=== PATIENT | male | born 1965 | race Two or more races ===

== ENCOUNTER 2025-02-14 21:13 | Emergency (ER) | payer MEDICAID, SELFPAY ==
[2025-02-14 21:13] VITALS: BMI 40.6
[2025-02-14 21:51] VITALS: BP 209/98; PULSE 74; RESP 20; TEMP 37.1; O2SAT 95
--- NOTE | 2025-02-14 21:54 | XR_ITS ---
Examination: PA lateral chest 2 views Technique: Upright PA lateral chest 2 views Exam date and time: February 14, 2025 1001 hrs. Indications: Elevated blood pressure today. Findings: Minor scarring in the lingular segment Mild enlargement cardiac contour No pulmonary edema or pneumonia The osseous structures are intact Impression: Mild enlargement cardiac contour No pneumonia or pulmonary edema
--- NOTE | 2025-02-14 21:54 | EKG_ITS ---
[facility] Test Date: 2025-02-14 Pat Name: NALDO MCKEON Department: Room: - Gender: Male Global Category Manager: : 1965 Requested By: Wilbert Garcia Order Number: [id number] Reading MD: Wilbert Garcia Measurements Intervals [place] Rate: 75 P: 20 [place]: 149 QRS: 10 QRSD: 117 T: 99 QT: 402 QTc: 450 Interpretive Statements SINUS RHYTHM MODERATE INTRAVENTRICULAR CONDUCTION DELAY [110+ ms QRS DURATION] ST DEVIATION AND MODERATE T-WAVE ABNORMALITY, CONSIDER LATERAL ISCHEMIA [-0.1+ mV T-WAVE IN I/aVL/V5/V6] Compared to ECG 04/05/2020 10:21:21 Intraventricular conduction delay now present Possible ischemia now present T-wave abnormality still present /store/S0/[id number]/ecg/[id number].pdf
--- NOTE | 2025-02-14 21:54 | PD.EDRME ---
Rapid Medical Screening Exam RME Arrival date/time: 02/14/25 21:13 59 yo m present to ED for c/o of dizziness, elevate bp I have greeted and performed a focused initial assessment of this patient. A comprehensive ED assessment and evaluation of the patient, analysis of all test results, and completion of the medical decision making process will be conducted by additional ED providers. Chief Complaint: General Adult/Misc Complain Time Seen by Provider: 02/14/25 21:48 Vital signs: Vital Signs Temperature 98.7 F 02/14/25 21:51 Pulse Rate 74 02/14/25 21:51 Respiratory Rate 20 02/14/25 21:51 Blood Pressure 209/98 H 02/14/25 21:51 Pulse Oximetry (%) 95 02/14/25 21:51 Oxygen Delivery Method Room Air 02/14/25 21:51
[2025-02-14 22:38] LABS: Basophils # (Auto) 0.1 Thou/mm3 (0.0-0.2); Basophils % (Auto) 1 % (0-2.5); Eosinophils # (Auto) 0.6 Thou/mm3 (0.0-0.5); Eosinophils % (Auto) 5 % (0-10); Hematocrit 40.8 % (41.0-53.0); Hemoglobin 14.7 g/dL (13.5-16.0); Immature Granulocytes % (Auto) 1 % (0-0); Immature Granulocytes Auto 0.09 Thou/mm3 (0.00-0.00); Lymphocytes # (Auto) 3.4 Thou/mm3 (1.0-4.8); Lymphocytes % (Auto) 27 % (10-50); Mean Corpuscular Hemoglobin 32.1 pg (25.0-35.0); Mean Corpuscular Volume 89 fL (80-100); Monocytes # (Auto) 0.8 Thou/mm3 (0.0-0.8); Monocytes % (Auto) 6 % (0-12); Neutrophils # (Auto) 7.5 Thou/mm3 (1.8-7.7); Neutrophils % (Auto) 60 % (37-80); Nucleated Red Blood Cell % 0 /100 WBC (0); Platelet Count 265 Thou/mm3 (140-440); RDW Standard Deviation 42.2 fL (35.1-43.9); Red Blood Count 4.58 Miln/mm3 (4.50-5.90); White Blood Count 12.4 Thou/mm3 (3.8-10.6)
[2025-02-14 23:07] LABS: B-Type Natriuretic Peptide 74 pg/mL (0-100)
[2025-02-14 23:12] LABS: Alanine Aminotransferase 76 U/L (10-49); Albumin, Serum 4.2 gm/dL (3.5-5.0); Albumin/Globulin Ratio 1.2 (1.2-2.2); Alkaline Phosphatase 80 U/L (46-116); Anion Gap 8 (7-16); Aspartate Amino Transferase 83 U/L (0-34); BUN/Creatinine Ratio 10 Ratio (12-20); Bilirubin,Total 0.6 mg/dL (0.3-1.2); Blood Urea Nitrogen 16 mg/dL (9-23); Calcium 9.1 mg/dL (8.3-10.6); Calcium (Corrected) 9.1 mg/dL (8.5-10.1); Carbon Dioxide 26.7 mMol/L (20.0-31.0); Chloride 104 mMol/L (98-107); Creatinine (Component) 1.6 mg/dL (0.6-1.3); Estimated Creatinine Clearance 64.9 mL/min (>60); Globulin 3.5 gm/dL (2.3-3.5); Glucose 84 mg/dL (74-106); Lipase 51 U/L (12-53); Osmolality,Calculated 277 (275-295); Potassium 3.7 mMol/L (3.4-5.1); Sodium 139 mMol/L (136-145); Total Protein 7.7 gm/dL (5.7-8.2); eGFR 49 See Note
[2025-02-14 23:15] LABS: Troponin I 0.168 ng/mL (0.0-0.045)
[2025-02-14 23:23] VITALS: BP 176/68; PULSE 67
[2025-02-14] MEDS: Aspirin 325 MG TABLET PO (23:31)
[2025-02-15] VITALS (7 sets, daily range): BP systolic 159–215; BP diastolic 82–108; PULSE 59–70; RESP 13–20; TEMP 36.8; O2SAT 95–98
--- NOTE | 2025-02-15 01:25 | PC.NURSE ---
PT ALERT AND ORIENTED, STATES HE WENT TO DONATE PLASMA TODAY BUT THEY WOULDN'T ALLOW HIM BECAUSE HIS BLOOD PRESSURE WAS TO HIGH, PT HAS NO COMPLAINTS ONLY CAME TO ER TO GET BLOOD PRESSURE CHECKED. PT ALSO STATES THAT HE HAS BEEN NON COMPLIANT WITH HTN MEDS. PT WAITING RE-EVALUATION FROM MD, WILL CONTINUE WITH PLAN OF CARE
--- NOTE | 2025-02-15 03:47 | PD.EDADULT ---
ED General RME/HPI General Chief complaint: General Adult/Misc Complain Stated complaint: HIGH BP 217/110 Time Seen by Provider: 02/14/25 21:48 Arrival date/time: 02/14/25 21:13 Limitations: no limitations RME / HPI RME / HPI narrative: Dr. Lentz's Main ED Evaluation: 59yo male with a history of HTN presents to the ED for a chief complaint of elevated blood pressure. Patient states she went to go donate plasma today, but was unable to due to his blood pressure being high. He states he continued to check his blood pressure for the rest of the day and it did not come down, so his daughter convinced him to come in for evaluation. He states he has not been taking his antihypertensives for 6 months (due to having his PCP appointments cancelled) and does not remember what medications he was on. He denies any headache, dizziness, chest pain, shortness of breath or any other associated symptoms. Denies being on blood thinners. PCP: [facility] Related Data Previous Rx's ?Medication ?Instructions ?Recorded ibuprofen 600 mg tablet 1 tab PO Q8HR PRN pain #30 tabs 12/12/16 cephalexin 500 mg capsule 500 mg PO Q8H #20 caps 04/05/24 lisinopril 10 mg tablet 10 mg PO QDAY #30 tabs 02/15/25 Allergies Allergy/AdvReac Type Severity Reaction Status Date / Time No Known Allergies Allergy Verified 04/05/20 10:05 Review of Systems Review of Systems Systems Reviewed: All systems reviewed, normal except as documented Past Medical History Past Medical History NEUROLOGIC: Negative Neurological Disorders CARDIAC: Positive Hypertension; Negative Cardiac Disorders or Congestive Heart Failure RESPIRATORY: Negative Chronic Obstructive Pulmonary Disease (COPD) or Asthma GASTROINTESTINAL: Positive Gastrointestinal Disorders and Obesity GENITOURINARY: Negative Genitourinary Disorders or Renal Disease MUSCULOSKELETAL: Negative Musculoskeletal Disorders ENDOCRINE: Negative Endocrine Disorders, Diabetes Mellitus Type 1 or Diabetes Mellitus Type 2 HEMATOLOGIC: Negative Blood Disorders or Sickle Cell Disease Social History SMOKING STATUS: Never smoker ED Exam General Limitations: Present no limitations General appearance: Present alert, in no apparent distress and obese Head Head exam: Present atraumatic Eye Eye exam: Present normal appearance, PERRL and EOMI ENT ENT exam: Present normal exam, normal oropharynx and mucous membranes moist Neck Neck exam: Present normal inspection, full ROM and trachea midline Chest Chest inspection: Present normal inspection and symmetric chest wall rise Respiratory Respiratory exam: Present normal lung sounds bilaterally Cardiovascular Cardiovascular exam: Present regular rate, normal rhythm and normal heart sounds Abdominal Exam Abdominal exam: Present soft and normal bowel sounds Extremities Exam Extremities exam: Present normal inspection and full ROM Back Exam Back exam: Present normal inspection and full ROM Neurological Exam Neurological exam: Present alert, oriented X3 and CN II-XII intact Psychiatric Psychiatric exam: Present normal affect and normal mood Skin Skin exam: Present warm, dry, intact and normal color Course Course Course Narrative: CXR is ordered for determining the etiology of elevated blood pressure. Quality Measures none Orders Category Date Time Status EKG (ED ONLY) *Do not use* NOW Care 02/14/25 21:54 Completed EKG (ED Only) Stat Exams 02/14/25 21:54 Draft XR chest 2V Stat Exams 02/14/25 21:54 Completed BNP [B-Type Natriuretic Peptide] Stat Lab 02/14/25 22:13 Completed CBC Stat Lab 02/14/25 22:13 Completed CMP [Comprehensive Metabolic Panel] Stat Lab 02/14/25 22:13 Completed Lipase Stat Lab 02/14/25 22:13 Completed Troponin I Stat Lab 02/14/25 22:13 Completed Troponin I Stat Lab 02/15/25 03:16 Completed Aspirin Med 02/14/25 23:21 Discontinued 325 mg PO X1 ONE hydrALAZINE HCL [Apresoline] Med 02/14/25 21:54 Discontinued 10 mg PO X1 ONE hydrALAZINE HCL [Apresoline] Med 02/14/25 23:13 Discontinued 25 mg PO X1 ONE Vital Signs Vital signs: Vital Signs Temperature 98.7 F 02/14/25 21:51 Pulse Rate 74 02/14/25 21:51 Respiratory Rate 20 02/14/25 21:51 Blood Pressure 209/98 H 02/14/25 21:51 Pulse Oximetry (%) 95 02/14/25 21:51 Oxygen Delivery Method Room Air 02/14/25 21:51 [facility] Patient data External records reviewed:: [facility] previous records (Per chart review, patient has no relevant previous ED visits.) Clinical information provided by:: patient Social determinants that could affect healthcare access:: none Patient has the following chronic illnesses:: HTN How is presenting disease/condition affected by chronic disease/condition?: caused by Evaluation data The following diagnostics were reviewed and interpreted by me:: lab results and EKG tracing(s) Lab and/or radiology exams considered but not ordered:: none Interpretation Summary: WBC count is 12.4, Creatinine is 1.6 (which is chronic), Initial troponin is 0.168, BNP is normal, according to my interpretation. EKG done at 2208, NSR, rate of 75, ST-T wave changes in lead I and avL, no STEMI, similar to previous EKG done in 04/2023, according to my interpretation. [facility] Report Signed Patient: NALDO MCKEON Record#: [id number] Birthdate: 1965 Age/Sex: 59 / M Location: [facility] Attending Dr: Ordering Physician: Wilbert Campbell PA-C Date of Service: 02/14/25 Procedure(s): XR chest 2V Accession Number(s): [id number] cc: Faraz Celis MD; Wilbert Campbell PA-C; Temporary Provider,ED ~ Examination: PA lateral chest 2 views Technique: Upright PA lateral chest 2 views Exam date and time: February 14, 2025 1001 hrs. Indications: Elevated blood pressure today. Findings: Minor scarring in the lingular segment Mild enlargement cardiac contour No pulmonary edema or pneumonia The osseous structures are intact Impression: Mild enlargement cardiac contour No pneumonia or pulmonary edema Dictated By: Faraz Celis MD Signed By: <Electronically signed by Faraz Celis MD in OV> 02/14/25 8263 Medications Medications considered but not ordered:: none Medication administrations:: Medication Administration History Discontinued Medications Aspirin (Aspirin 325 Mg Tablet) 325 mg PO X1 ONE Stop: 02/14/25 23:22 Last Admin: 02/14/25 23:31 Dose: 325 mg Documented By: BEBETO Hydralazine HCl (Hydralazine Hcl 10 Mg Tablet) 10 mg PO X1 ONE Stop: 02/14/25 21:55 Last Admin: 02/14/25 23:32 Dose: Not Given Documented By: BEBETO Non-Admin Reason: Allergy Hydralazine HCl (Hydralazine Hcl 25 Mg Tablet) 25 mg PO X1 ONE Stop: 02/14/25 23:14 Last Admin: 02/14/25 23:31 Dose: Not Given Documented By: BEBETO Non-Admin Reason: Cancelled by Provider see above Consultations Consultation(s) initiated? (list below): Yes Diagnosis Differential Diagnosis ED Complaint MDM: hypertensive urgency, hypertensive emergency, medication noncompliance Most likely diagnosis given after review of the tests above:: Other DDx: acute on chronic renal failure Final Dx: see clinical impression below Admission Indicated Admission indicated?: not indicated Explain why admission is indicated or not indicated:: Admission criteria not met. Admission Request Was there a request for admission?: No Disposition Plan Disposition Plan: Discharge Discharge Attestation Discharge Attestation: The patient and all family members were given an opportunity to ask questions and understood the discharge instructions. Discharge instructions specifically effects, indications for sooner follow up or return to the emergency department, and the expected course of current diagnosis. Patient condition: Stable Medical Decision Making MDM Narrative MDM Narrative: Scribe Attestation: 02/15/25 Gila Donaldson am scribing for and in the presence of Dr. Lentz. 0424: Discussed case with Dr. Maxwell from Hospitalist service regarding admission. Discussed patients ED course, exam findings, labs, and radiology results. The Hospitalist states that since the patient is asymptomatic at this time, the patient is stable to be discharged home. 0427: Shared-decision making discussed with the patient. He feels comfortable going home at this time. Differential Diagnosis Differential Diagnosis: hypertensive urgency, hypertensive emergency, medication noncompliance Lab Data 02/14/25 22:13 02/14/25 22:13 Labs: Lab Results 02/14/25 02/15/25 Range/Units 22:13 03:16 WBC 12.4 H (3.8-10.6) Thou/mm3 RBC 4.58 (4.50-5.90) Miln/mm3 Hgb 14.7 (13.5-16.0) g/dL Hct 40.8 L (41.0-53.0) % MCV 89 (80-100) fL MCH 32.1 (25.0-35.0) pg MCHC 36.0 (31.0-37.0) g/dl RDW Std Deviation 42.2 (35.1-43.9) fL Plt Count 265 (140-440) Thou/mm3 Neut % (Auto) 60 (37-80) % Lymph % (Auto) 27 (10-50) % [place] % (Auto) 6 (0-12) % Eos % (Auto) 5 (0-10) % Baso % (Auto) 1 (0-2.5) % Neut # (Auto) 7.5 (1.8-7.7) Thou/mm3 Lymph # (Auto) 3.4 (1.0-4.8) Thou/mm3 [place] # (Auto) 0.8 (0.0-0.8) Thou/mm3 Eos # (Auto) 0.6 H (0.0-0.5) Thou/mm3 Baso # (Auto) 0.1 (0.0-0.2) Thou/mm3 Immature Gran # (Auto) 0.09 H (0.00-0.00) Thou/mm3 Absolute Nucleated RBC 0.00 (0.00-0.00) Thou/mm3 Immature Gran % 1 H (0-0) % Nucleated RBC % 0 (0) /100 WBC Sodium 139 (136-145) mMol/L Potassium 3.7 (3.4-5.1) mMol/L Chloride 104 (98-107) mMol/L Carbon Dioxide 26.7 (20.0-31.0) mMol/L Anion Gap 8 (7-16) BUN 16 (9-23) mg/dL Creatinine 1.6 H (0.6-1.3) mg/dL Estim Creat Clear Calc 64.9 (>60) mL/min eGFR 49 L (60 - ) See Note BUN/Creatinine Ratio 10 L (12-20) Ratio Glucose 84 (74-106) mg/dL Calculated Osmolality 277 (275-295) Calcium 9.1 (8.3-10.6) mg/dL Corrected Calcium 9.1 (8.5-10.1) mg/dL Total Bilirubin 0.6 (0.3-1.2) mg/dL AST 83 H (0-34) U/L ALT 76 H (10-49) U/L Alkaline Phosphatase 80 (46-116) U/L Troponin I 0.168 H* 0.165 H* (0.0-0.045) ng/mL B-Natriuretic Peptide 74 (0-100) pg/mL Total Protein 7.7 (5.7-8.2) gm/dL Albumin 4.2 (3.5-5.0) gm/dL Globulin 3.5 (2.3-3.5) gm/dL Albumin/Globulin Ratio 1.2 (1.2-2.2) Lipase 51 (12-53) U/L Discharge Plan Plan Patient Disposition: HOME (Self Care) Patient condition on transfer: Stable Prescriptions/Referrals Prescriptions/Med Rec: New lisinopril 10 mg tablet 10 mg PO QDAY Qty: 30 3RF No Action ibuprofen 600 MG tablet 1 tab PO Q8HR PRN (Reason: pain) Qty: 30 0RF cephalexin 500 mg capsule 500 mg PO Q8H Qty: 20 0RF Referrals: [facility] [Outside] - 02/18/25 No Primary/Family,Physician [Primary Care Provider] - In 1 week Problem List Clinical Impression: Noncompliance with medication regimen, Hypertension Patient/Caregiver Discharge Instructions Education Materials: Controlling High Blood Pressure, Blood Pressure Check Steps Additional Instructions: Follow-up with your primary care provider in 72 hours. Return to the ED if you have any worsening symptoms such as headache, chest pain, shortness of breath or any other concerns. Take medications as prescribed. Print Language: Frisian Stand Alone Forms: [facility] Info., Patient Portal Info Letter
[2025-02-15 04:07] LABS: Troponin I 0.165 ng/mL (0.0-0.045)
== END 2025-02-15 06:05 | disposition home or self-care (01) ==
PROVIDERS: Physician Assistant; Emergency Provider Emergency Medicine
DX: I10 Essential (primary) hypertension (principal); Z91.148 Patient's other noncompliance with medication regimen for other reason
CPT/HCPCS: 36415; 71046; 80053; 83690; 83880; 84484; 85025; 93005; 99283; A9270

== ENCOUNTER 2025-04-26 19:06 | Emergency (ER) | payer MEDICAID, SELFPAY ==
[2025-04-26 19:06] VITALS: BMI 37.8
[2025-04-26 19:24] VITALS: BP 155/82; PULSE 107; RESP 20; TEMP 36.6; O2SAT 96
--- NOTE | 2025-04-26 19:43 | EDRME_ITS ---
Rapid Medical Screening Exam [facility] Arrival date/time: 04/26/25 19:06 59M with history of HTN and drug/alcohol use presents to ED with 1 day of N/V, LUQ pain, and some non-bloody diarrhea. Patient had two shots of alcohol yesterday, but doesn't feel like he's going through withdrawal. Patient also states this doesn't feel like food poisoning. Chief Complaint: Abdominal Pain Vital signs: Vital Signs Temperature 98 F 04/26/25 19:24 Pulse Rate 107 H 04/26/25 19:24 Respiratory Rate 20 04/26/25 19:24 Blood Pressure 155/82 H 04/26/25 19:24 Pulse Oximetry (%) 96 04/26/25 19:24 Oxygen Delivery Method Room Air 04/26/25 19:24
--- NOTE | 2025-04-26 20:21 | PC.NURSE ---
KYLE 2021 CAME UP TO NURSES STATION AND SAID HE IS SEEING HES PRIMARY IN THE MORNING AND NOT WAITING ANY LONGER. THEN WALKS OUT.
[2025-04-26 20:30] LABS: Alanine Aminotransferase 69 U/L (10-49); Albumin, Serum 4.2 gm/dL (3.5-5.0); Albumin/Globulin Ratio 1.4 (1.2-2.2); Alcohol, Blood Medical < 3.0 mg/dL (0-10.0); Alkaline Phosphatase 65 U/L (46-116); Anion Gap 13 (7-16); Aspartate Amino Transferase 81 U/L (0-34); BUN/Creatinine Ratio 5 Ratio (12-20); Bilirubin,Total 1.1 mg/dL (0.3-1.2); Blood Urea Nitrogen 17 mg/dL (9-23); Calcium 9.7 mg/dL (8.3-10.6); Calcium (Corrected) 9.7 mg/dL (8.5-10.1); Carbon Dioxide 20.9 mMol/L (20.0-31.0); Chloride 101 mMol/L (98-107); Creatinine (Component) 3.4 mg/dL (0.6-1.3); Estimated Creatinine Clearance 30.3 mL/min (>60); Glucose 126 mg/dL (74-106); Lipase 37 U/L (12-53); Osmolality,Calculated 273 (275-295); Potassium 2.9 mMol/L (3.4-5.1); Sodium 135 mMol/L (136-145); Total Protein 7.2 gm/dL (5.7-8.2); eGFR 20 See Note
[2025-04-26 20:50] LABS: Basophils # (Auto) 0.1 Thou/mm3 (0.0-0.2); Basophils % (Auto) 1 % (0-2.5); Eosinophils % (Auto) 0 % (0-10); Hematocrit 47.9 % (41.0-53.0); Hemoglobin 17.1 g/dL (13.5-16.0); Immature Granulocytes % (Auto) 1 % (0-0); Immature Granulocytes Auto 0.13 Thou/mm3 (0.00-0.00); Lymphocytes # (Auto) 2.8 Thou/mm3 (1.0-4.8); Lymphocytes % (Auto) 14 % (10-50); Mean Corpuscular HGB Conc 35.7 g/dl (31.0-37.0); Mean Corpuscular Volume 93 fL (80-100); Monocytes # (Auto) 1.2 Thou/mm3 (0.0-0.8); Monocytes % (Auto) 6 % (0-12); Neutrophils # (Auto) 15.6 Thou/mm3 (1.8-7.7); Neutrophils % (Auto) 79 % (37-80); Nucleated Red Blood Cell % 0 /100 WBC (0); Platelet Count 247 Thou/mm3 (140-440); RDW Standard Deviation 46.2 fL (35.1-43.9); Red Blood Count 5.18 Miln/mm3 (4.50-5.90); White Blood Count 19.8 Thou/mm3 (3.8-10.6)
== END 2025-04-26 20:23 | disposition left against medical advice (07) ==
LOC: SERX 19:46
PROVIDERS: Physician Assistant; Emergency Provider Emergency Medicine
DX: R11.2 Nausea with vomiting, unspecified (principal); Z53.29 Procedure and treatment not carried out because of patient's decision for other reasons; I10 Essential (primary) hypertension; R10.12 Left upper quadrant pain; R19.7 Diarrhea, unspecified
CPT/HCPCS: 36415; 80053; 80307; 80320; 81001; 83690; 85025; 99281; G0480

== ENCOUNTER 2025-05-11 17:09 | Emergency (ER) | payer MEDICAID, SELFPAY ==
[2025-05-11 17:51] VITALS: BP 146/75; PULSE 109; RESP 20; TEMP 36.8; O2SAT 95
--- NOTE | 2025-05-11 17:52 | XR_ITS ---
Examination: Testicular sonography complete TECHNIQUE: [place] scale sonographic images stenoses, assessment arterial inflow and venous outflow Doppler spectrum analysis color flow analysis Date and time: May 11, 2025, 1809 hours INDICATIONS: Left testicular pain beginning 2 days ago FINDINGS: Right testis 4.4 cm epididymis 1.0 cm 12 mm right epididymal cyst Arterial flow to the testicle. No testicular mass Mild hydrocele Left testis 3.6 cm epididymis 1.9 cm 14 mm right epididymal cyst Moderate varicocele Arterial flow to the testicle. No testicular mass Mild hydrocele IMPRESSION: No testicular torsion or testicular mass. Bilateral benign epididymal cysts. Moderate left varicocele
--- NOTE | 2025-05-11 17:53 | PD.EDMALE ---
ED Male Genitalurinary RME/HPI General Chief complaint: Urogenital-Male Stated complaint: Left testicle is swollen X 2 days Time Seen by Provider: 05/11/25 17:40 Arrival date/time: 05/11/25 17:09 This is a case of 59-year-old male with history of present urinary tract infection came in in the emergency room due to testicular pain for 2 days with swelling patient denies any abdominal pain penile discharge nausea vomiting constipation diarrhea Limitations: no limitations Related Data Previous Rx's ?Medication ?Instructions ?Recorded ibuprofen 600 mg tablet 1 tab PO Q8HR PRN pain #30 tabs 12/12/16 cephalexin 500 mg capsule 500 mg PO Q8H #20 caps 04/05/24 lisinopril 10 mg tablet 10 mg PO QDAY #30 tabs 02/15/25 cefuroxime axetil 500 mg tablet 500 mg PO BID 10 days #20 tabs 05/11/25 hydrocodone 5 mg-acetaminophen 325 1 tab PO Q6H PRN pain #10 tabs 05/11/25 mg tablet Allergies Allergy/AdvReac Type Severity Reaction Status Date / Time No Known Allergies Allergy Verified 04/05/20 10:05 Review of Systems Constitutional Constitutional: Reports system reviewed and no additional complaints, except as documented, Reports as per HPI, Denies chills and Denies fever(s) Cardiovascular Cardiovascular: Reports system reviewed and no additional complaints, except as documented, Reports as per HPI, Denies chest pain and Denies dyspnea Respiratory Respiratory: Reports system reviewed and no additional complaints, except as documented, Reports as per HPI and Denies dyspnea Gastrointestinal Gastrointestinal: Reports system reviewed and no additional complaints, except as documented, Reports as per HPI, Denies abdominal pain, Denies diarrhea, Denies dyspepsia, Denies hematemesis, Denies nausea and Denies vomiting Genitourinary Genitourinary: Reports system reviewed and no additional complaints, except as documented, Reports as per HPI, Denies change in libido, Denies difficulty urinating, Denies difficulty with ejaculations, Denies dysuria, Denies erectile dysfunction, Denies flank pain, Denies genital lesions, Denies genital pain, Denies hematospermia, Denies hematuria, Denies nocturia, Denies oliguria, Denies painful ejaculations, Denies penile discharge, Denies scrotal swelling, Denies testicular mass, Reports testicular pain, Denies urinary frequency, Denies urinary hesitancy, Denies urinary incontinence and Denies urinary urgency Musculoskeletal Musculoskeletal: Reports system reviewed and no additional complaints, except as documented and Reports as per HPI Neurologic Neurologic: Reports system reviewed and no additional complaints, except as documented and Reports as per HPI Psychiatric Psychiatric: Denies change in libido Endocrine Endocrine: Denies change in libido Past Medical History Past Medical History NEUROLOGIC: Negative Neurological Disorders CARDIAC: Positive Hypertension; Negative Cardiac Disorders or Congestive Heart Failure RESPIRATORY: Negative Chronic Obstructive Pulmonary Disease (COPD) or Asthma GASTROINTESTINAL: Positive Gastrointestinal Disorders and Obesity GENITOURINARY: Negative Genitourinary Disorders or Renal Disease MUSCULOSKELETAL: Negative Musculoskeletal Disorders ENDOCRINE: Negative Endocrine Disorders, Diabetes Mellitus Type 1 or Diabetes Mellitus Type 2 HEMATOLOGIC: Negative Blood Disorders or Sickle Cell Disease Social History SMOKING STATUS: Former smoker ED Exam General Limitations: Present no limitations General appearance: Present alert, in no apparent distress and other (Patient is awake alert oriented not in distress nontoxic looking well-hydrated well-nourished) Head Head exam: Present atraumatic, normocephalic and normal inspection Eye Eye exam: Present normal appearance, PERRL and EOMI ENT ENT exam: Present normal exam, normal oropharynx and mucous membranes moist Neck Neck exam: Present normal inspection, full ROM and trachea midline; Absent tenderness or meningismus Chest Chest inspection: Present normal inspection and symmetric chest wall rise; Absent tenderness or rash Respiratory Respiratory exam: Present normal lung sounds bilaterally; Absent respiratory distress, wheezes, stridor, accessory muscle use or prolonged expiratory phase Cardiovascular Cardiovascular exam: Present regular rate, normal rhythm and normal heart sounds; Absent bradycardia, tachycardia, irregular rhythm, systolic murmur or diastolic murmur Abdominal Exam Abdominal exam: Present soft and normal bowel sounds; Absent distention, tenderness, guarding, rebound, rigidity, diminished bowel sounds, hyperactive bowel sounds or hypoactive bowel sounds exam: Present testicular tenderness, scrotal swelling, circumcised and other (Noted mild to moderate tenderness on the left testicle with swelling no penile ulceration rash or any lesion no penile discharge scrotum normal exam no inguinal hernia chaperoned by RN); Absent urethral discharge or normal testicular lie Extremities Exam Extremities exam: Present normal inspection and full ROM Back Exam Back exam: Present normal inspection and full ROM Neurological Exam Neurological exam: Present alert, oriented X3, CN II-XII intact, normal gait and reflexes normal; Absent motor sensory deficit Psychiatric Psychiatric exam: Present normal affect and normal mood Skin Skin exam: Present warm, dry, intact and normal color Course Quality Measures none Orders Category Date Time Status US testicular Stat Exams 05/11/25 17:52 Completed Blood Culture (Lab) Stat Lab 05/11/25 19:15 Received CBC Stat Lab 05/11/25 18:00 Completed CMP [Comprehensive Metabolic Panel] Stat Lab 05/11/25 18:00 Completed Lactic Acid [Lactate (Lactic Acid)] Stat Lab 05/11/25 19:15 Completed Procalcitonin Stat Lab 05/11/25 19:15 Completed Urinalysis Stat Lab 05/11/25 18:52 Completed Urine Culture Stat Lab 05/11/25 18:52 Received Sodium Chloride 0.9% 1000 ml [Ns] 1,000 ml Med 05/11/25 18:46 Discontinued IV 999 mls/hr Sodium Chloride 0.9% 1000 ml [Ns] 1,000 ml Med 05/11/25 19:37 Discontinued IV 999 mls/hr cefTRIAXone [Rocephin] 2 gm Med 05/11/25 18:47 Discontinued SODIUM CHLORIDE 0.9% ([place]) [Ns 0.9% (P)] 50 ml IV X1 Vital Signs Vital signs: Vital Signs Temperature 98.3 F 05/11/25 17:51 Pulse Rate 109 H 05/11/25 17:51 Respiratory Rate 20 05/11/25 17:51 Blood Pressure 146/75 H 05/11/25 17:51 Pulse Oximetry (%) 95 05/11/25 17:51 Oxygen Delivery Method Room Air 05/11/25 17:51 Patient is afebrile mild tachycardic 109 not tachypneic BP stable not hypoxic oxygen saturation is 95% in room air Urogenital - Male MDM Narrative MDM Narrative:: This is a case of 59-year-old male with history of present urinary tract infection came in in the emergency room due to testicular pain for 2 days with swelling patient denies any abdominal pain penile discharge nausea vomiting constipation diarrhea physical examination patient is awake alert oriented not in distress not toxic looking well-hydrated well-nourished lungs sound is clear no crackles no rales no retraction no stridor abdominal exam is benign nonsurgical no guarding no rebound no rigidity no tenderness negative psoas negative straight or negative Rovsing's negative Lynn's negative CVA tenderness patient noted to have a tenderness on the left testicle with mild swelling of the left scrotum no penile discharge no erosions no lesion noted the rest of the physical examination neurological exam is normal and on room blood test showed leukocytosis at 19.3 lactic acid is normal procalcitonin is negative thus patient is not having sepsis patient have hyponatremia at 132 thus a bolus of normal saline was given patient potassium is normal patient creatinine is 1.5 the rest of the BUN and kidney exam is normal liver function is normal patient urinalysis showed positive nitrite and positive WC BC suggestive of urinary tract infection ultrasound of the testicle showed left varicocele and epididymal cyst no testicular torsion at this point patient was given a bolus of normal saline and ceftriaxone 2 g for urinary tract infection patient condition markedly improved pain on the testicle improved even though there is no pain medication patient is well informed to follow-up with the urologist for further evaluation of testicular pain varicocele and epididymal cyst patient will also return here in the emergency room tomorrow for leukocytosis and to repeat CBC for any worsening symptoms he is informed to return in the emergency room immediately or call 911 he was also prescribed with cefuroxime for UTI and [place] for pain patient agreed with the treatment plan and discharge Patient was discharged with comfortable condition walking with stable gait. Patient verbalized no further complains explained diagnosis and answered patient question. Patient is comfortable with the proposed management plan including the need to follow up with his/her primary care physician and any specialist if applicable Discussed patient for any urgent condition or worsening sx, He/She needed to go to emergency room immediately or call 911. Patient acknowledge the responsibility to follow up as instructed and to monitor her/his symptoms. For any persistence of the symptoms for more than 3-5 days return precaution advised. Discussed the result of the test and was given printed discharge instruction Patient data External records reviewed:: [facility] previous records Clinical information provided by:: patient Social determinants that could affect healthcare access:: none Patient has the following chronic illnesses:: None How is presenting disease/condition affected by chronic disease/condition?: no chronic disease Evaluation data The following diagnostics were reviewed and interpreted by me:: lab results and radiology exam(s) Lab and/or radiology exams considered but not ordered:: Reviewed Interpretation Summary: Reviewed Medications / Prescriptions Medications or Prescriptions considered but not ordered:: Given Medication administrations:: Medication Administration History Discontinued Medications Sodium Chloride (Ns) 1,000 mls @ 999 mls/hr IV .Q1H1M ONE Stop: 05/11/25 19:46 Last Infusion: 05/11/25 20:40 Dose: Infused Documented By: Admin: 05/11/25 19:29 Dose: 999 mls/hr Documented By: SIRIA Ceftriaxone Sodium 2 gm/ (Sodium Chloride) 50 mls @ 100 mls/hr IV X1 ONE Stop: 05/11/25 19:16 Last Infusion: 05/11/25 19:58 Dose: Infused Documented By: Admin: 05/11/25 19:28 Dose: 100 mls/hr Documented By: SIRIA Sodium Chloride (Ns) 1,000 mls @ 999 mls/hr IV .Q1H1M ONE Stop: 05/11/25 20:37 Last Admin: 05/11/25 20:53 Dose: Not Given Documented By: JELLY Non-Admin Reason: Duplicate Medication on eMAR Given Consultations Consultation(s) initiated? (list below): No Diagnosis Urogenital Male Differential Diagnosis: urinary tract infection, epididymitis, prostatitis and other (Testicular torsion) Most likely diagnosis given after review of the tests above:: Urinary tract infection varicocele epididymal cyst Admission Indicated Admission indicated?: not indicated Explain why admission is indicated or not indicated:: Not indicated Admission Request Was there a request for admission?: No Admission Attestation Admission request attestation: Not indicated Disposition Plan Disposition Plan: Discharge Discharge Attestation Discharge Attestation: The patient and all family members were given an opportunity to ask questions and understood the discharge instructions. Discharge instructions specifically effects, indications for sooner follow up or return to the emergency department, and the expected course of current diagnosis. Patient condition: Stable Discharge Plan Plan Patient Disposition: HOME (Self Care) Prescriptions/Referrals Prescriptions/Med Rec: New cefuroxime axetil 500 mg tablet 500 mg PO BID 10 Days Qty: 20 0RF hydrocodone-acetaminophen 5-325 mg tablet 1 tab PO Q6H MDD max 4 tabs for 4 days PRN (Reason: pain) Qty: 10 0RF No Action ibuprofen 600 MG tablet 1 tab PO Q8HR PRN (Reason: pain) Qty: 30 0RF cephalexin 500 mg capsule 500 mg PO Q8H Qty: 20 0RF lisinopril 10 mg tablet 10 mg PO QDAY Qty: 30 3RF Referrals: Rustam Morales MD [Physician] - 05/12/25 (For further evaluation and treatment of left testicular pain varicocele and epididymal cyst) Pedro Truong MD [Primary Care Provider] - In 1 week Problem List Clinical Impression: Left testicular pain, Urinary tract infection, Leukocytosis, Left varicocele, Epididymal cyst Patient/Caregiver Discharge Instructions Education Materials: Understanding Urinary Tract ..., ED Testicular Pain, Unclear Cause, ED Varicocele Additional Instructions: Follow-up with your primary care physician in 2 days for reevaluation and to be referred to urologist for further evaluation and treatment of testicular pain varicocele and epididymal cyst return to the emergency room tomorrow for reevaluation of leukocytosis and to repeat blood test CBC worsening symptoms or any emergent concern call 911 or go to the nearest emergency room take your medication as directed finish the course of antibiotic keep hydrated increase water intake Print Language: Syriac Stand Alone Forms: [facility] Award Info., Patient Portal Info Letter PA/DILAN Supervising Physician PA/DILAN Supervising Physician: dr mir
[2025-05-11 18:02] VITALS: BP 170/74; PULSE 105; RESP 18; TEMP 37.1; O2SAT 96
[2025-05-11 18:09] LABS: Basophils # (Auto) 0.1 Thou/mm3 (0.0-0.2); Basophils % (Auto) 1 % (0-2.5); Eosinophils # (Auto) 0.2 Thou/mm3 (0.0-0.5); Eosinophils % (Auto) 1 % (0-10); Hematocrit 42.3 % (41.0-53.0); Hemoglobin 15.0 g/dL (13.5-16.0); Immature Granulocytes Auto 0.31 Thou/mm3 (0.00-0.00); Lymphocytes # (Auto) 3.4 Thou/mm3 (1.0-4.8); Lymphocytes % (Auto) 18 % (10-50); Mean Corpuscular HGB Conc 35.5 g/dl (31.0-37.0); Mean Corpuscular Hemoglobin 32.6 pg (25.0-35.0); Mean Corpuscular Volume 92 fL (80-100); Monocytes # (Auto) 1.8 Thou/mm3 (0.0-0.8); Monocytes % (Auto) 9 % (0-12); Neutrophils # (Auto) 13.6 Thou/mm3 (1.8-7.7); Neutrophils % (Auto) 70 % (37-80); Nucleated Red Blood Cell # 0.00 Thou/mm3 (0.00-0.00); Nucleated Red Blood Cell % 0 /100 WBC (0); Platelet Count 569 Thou/mm3 (140-440); RDW Standard Deviation 44.6 fL (35.1-43.9); Red Blood Count 4.60 Miln/mm3 (4.50-5.90); White Blood Count 19.3 Thou/mm3 (3.8-10.6)
[2025-05-11 18:32] LABS: Alanine Aminotransferase 43 U/L (10-49); Albumin, Serum 3.8 gm/dL (3.5-5.0); Albumin/Globulin Ratio 1.1 (1.2-2.2); Alkaline Phosphatase 83 U/L (46-116); Anion Gap 11 (7-16); Aspartate Amino Transferase 50 U/L (0-34); BUN/Creatinine Ratio 6 Ratio (12-20); Bilirubin,Total 0.6 mg/dL (0.3-1.2); Blood Urea Nitrogen 9 mg/dL (9-23); Calcium 9.2 mg/dL (8.3-10.6); Calcium (Corrected) 9.4 mg/dL (8.5-10.1); Carbon Dioxide 26.2 mMol/L (20.0-31.0); Chloride 95 mMol/L (98-107); Creatinine (Component) 1.5 mg/dL (0.6-1.3); Globulin 3.4 gm/dL (2.3-3.5); Glucose 117 mg/dL (74-106); Osmolality,Calculated 264 (275-295); Potassium 3.8 mMol/L (3.4-5.1); Sodium 132 mMol/L (136-145); Total Protein 7.2 gm/dL (5.7-8.2); eGFR 53 See Note
[2025-05-11 19:03] LABS: Collection Type, Urine Voided; RBC,Urine 0 /hpf (0-3)
[2025-05-11 19:14] LABS: Bacteria,Urine 2+; Bilirubin,Urine Negative (Negative); Blood,Urine Negative (Negative); Clarity,Urine Clear (Clear/Hazy); Color,Urine Yellow (Lt Yel-Yel); Glucose, Urine Negative (Negative); Ketones,Urine Negative (Negative); Leukocyte Esterase,Urine Positive (Negative); Nitrite,Urine Negative (Negative); PH,Urine 6.5 (5.0-7.0); Protein,Urine Negative (Neg - Trace); Specific Gravity,Urine 1.011 (1.001-1.035); Squamous Epithelial Cell,Urine < 1 /hpf (0-5); Urobilinogen,Urine Negative mg/dL (0.0-1.0); WBC,Urine 35 /hpf (0-5)
[2025-05-11 19:25] LABS: Lactate (Lactic Acid) 1.4 mMol/L (0.4-2.0)
[2025-05-11] MEDS: cefTRIAXone 2 GM in SODIUM CHLORIDE 0.9% (Popper) 50 ML IV (19:28)
[2025-05-11] MEDS: SODIUM CHLORIDE 0.9% 1000 ML 1,000 ML 999 ML IV (19:29)
[2025-05-11 20:31] LABS: Procalcitonin 0.25 ng/ml (0.0-0.49)
[2025-05-11 20:54] VITALS: BP 132/68; PULSE 86; RESP 18; TEMP 36.6; O2SAT 98
== END 2025-05-11 20:55 | disposition home or self-care (01) ==
PROVIDERS: Nurse Practitioner Family; Emergency Provider Emergency Medicine; PCP Family Medicine
DX: N50.3 Cyst of epididymis (principal); I86.1 Scrotal varices; N39.0 Urinary tract infection, site not specified
CPT/HCPCS: 36415; 76870; 80053; 81001; 83605; 84145; 85025; 87040; 87077; 87086; 87186; 96361; 96365; 96372; 99284; J0696; J7030; J7050